=== PATIENT | female | born 1965 | race Caucasian/White ===

== ENCOUNTER 2016-11-15 20:46 | Emergency (ER) | payer OTHER ==
[~2016-11-15] VITALS: Ht 160 cm; Wt 100.2 kg
[2016-11-15] MEDS ORDERED: AMLODIPINE BESYL5 MG PO (21:23)
[2016-11-15] MEDS ORDERED: CONJUGATED ESTROGENS 0.625 MG (21:23)
[2016-11-15] MEDS ORDERED: LEXAPRO10 MG PO (21:23)
[2016-11-15] MEDS ORDERED: PROAIR HFA8.5 GM IH (23:01)
[2016-11-15 23:18] VITALS: BP 132/85
== END 2016-11-15 23:18 | disposition home or self-care (01) ==
LOC: EME 20:46
DX: T78.40XA Allergy, unspecified, initial encounter (principal); J98.01 Acute bronchospasm; J45.909 Unspecified asthma, uncomplicated; I10 Essential (primary) hypertension
CPT/HCPCS: 94640; 99281; 99283; J8540